=== PATIENT | male | born 1980 | race Hispanic/Latino ===

== ENCOUNTER 2018-07-03 19:07 | Emergency (ER) | payer SELFPAY ==
[~2018-07-03] VITALS: Ht 165.1 cm; Wt 81.8 kg
[2018-07-03] MEDS ORDERED: SULFACET SOD10 % OS (20:04)
[2018-07-03 20:10] VITALS: BP 143/74
== END 2018-07-03 20:10 | disposition home or self-care (01) | DRG 125 ==
LOC: ED 19:07
DX: S05.02XA Injury of conjunctiva and corneal abrasion without foreign body, left eye, initial encounter (principal); H11.32 Conjunctival hemorrhage, left eye; W22.8XXA Striking against or struck by other objects, initial encounter; Y93.H3 Activity, building and construction; Y92.007 Garden or yard of unspecified non-institutional (private) residence as the place of occurrence of the external cause